=== PATIENT | female | born 1995 | race Caucasian/White ===

== ENCOUNTER 2016-08-03 13:41 | Emergency (ER) | payer OTHER, MEDICARE, MEDICAID ==
[2016-08-03 13:49] VITALS: BP 153/75; PULSE 110; RESP 12; TEMP 98.3; O2SAT 97
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
[2016-08-03] MEDS ORDERED: ONDANSETRON ODT 4 MG TAB PO ONE (15:45)
[2016-08-03] MEDS ORDERED: ACETAMINOPHEN 325 MG TAB PO ONE (15:45)
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
[2016-08-03] MEDS ORDERED: NAPR500 PO (16:43)
[2016-08-03] MEDS ORDERED: CYCL1TAB29 PO (16:43)
== END 2016-08-03 16:55 | disposition home or self-care (01) ==
LOC: NEPB 13:41
DX: S09.90XA Unspecified injury of head, initial encounter (principal); S16.1XXA Strain of muscle, fascia and tendon at neck level, initial encounter; M54.5 Low back pain; V43.52XA Car driver injured in collision with other type car in traffic accident, initial encounter; Y92.410 Unspecified street and highway as the place of occurrence of the external cause
CPT/HCPCS: 70450; 71010; 72100; 72125